=== PATIENT | female | born 1955 | race Caucasian/White ===

== ENCOUNTER 2016-09-24 14:26 | Emergency (ER) | payer MEDICARE, SELFPAY ==
[2016-09-24 15:01] VITALS: BP 160/79; PULSE 72; TEMP 98.4
[2016-09-24 15:02] VITALS: BMI 37.9
--- NOTE | 2016-09-24 15:25 | DIRPT ---
CLINICAL DATA: Fall 2 days ago with persistent wrist pain, initial encounter EXAM: LEFT WRIST - COMPLETE 3+ VIEW COMPARISON: None. FINDINGS: There are postsurgical changes consistent with prior removal of the trapezium. No acute fracture or dislocation is noted. No gross soft tissue abnormality is seen. IMPRESSION: Postsurgical changes without acute abnormality. Electronically Signed By: Darshan Acosta M.D. On: 09/24/2016 15:22
--- NOTE | 2016-09-24 15:50 | EDPRACDOC ---
- General Information Chief Complaint: Wrist Pain Stated Complaint: SLIPPED & FELL INJURED LT HAND/WRIST Time Seen by Provider: 09/24/16 15:30 Information Source: Patient Mode of Arrival: Car Home Medications: Home Medications Bupropion HCl [Wellbutrin Xl] 300 mg PO QAM 09/09/14 Trazodone HCl 300 mg PO QHS 09/09/14 Venlafaxine HCl [Effexor Xr] 150 mg PO BID 09/09/14 Multivit-Min/FA/Lycopene/Lut [Centrum Silver Tablet] 1 each PO DAILY 11/27/14 Dicyclomine HCl [Bentyl] 10 mg PO Q6H PRN 09/13/15 Mirabegron [Myrbetriq] 25 mg PO HS 09/13/15 Aripiprazole [Abilify] 2 mg PO DAILY 05/19/16 Albuterol Sulfate [Proventil, Ventolin] 2.5 mg NEB Q6H PRN 06/18/16 Lubiprostone [Amitiza] 24 mcg PO DAILY 08/31/16 Allergies/Adverse Reactions: Allergies Allergy/AdvReac Type Severity Reaction Status Date / Time butorphanol tartrate Allergy Unknown See Verified 09/24/16 15:21 [From Stadol] Comments cefazolin sodium [From Ancef] Allergy Unknown Unknown Verified 09/24/16 15:21 clindamycin HCl Allergy Unknown See Verified 09/24/16 15:21 [From Cleocin] Comments clindamycin palmitate HCl Allergy Unknown See Verified 09/24/16 15:21 [From Cleocin] Comments clindamycin phosphate Allergy Unknown See Verified 09/24/16 15:21 [From Cleocin] Comments codeine Allergy Unknown rash Verified 09/24/16 15:21 morphine Allergy Unknown Nausea only Verified 09/24/16 15:21 nefazodone HCl [From Serzone] Allergy Unknown See Verified 09/24/16 15:21 Comments Penicillins Allergy Unknown rash Verified 09/24/16 15:21 propoxyphene napsylate Allergy Unknown rash Verified 09/24/16 15:21 [From Darvocet-N 100] silodosin [From Rapaflo] Allergy Unknown Itching Verified 09/24/16 15:21 Sulfa (Sulfonamide Allergy Unknown joint pain Verified 09/24/16 15:21 Antibiotics) sumatriptan [From Imitrex] Allergy Unknown Difficulty Verified 09/24/16 15:21 Breathing tramadol HCl [From Ultram] Allergy Unknown rash Verified 09/24/16 15:21 zolpidem tartrate Allergy Unknown See Verified 09/24/16 15:21 [From Ambien] Comments ciprofloxacin [From Cipro] Allergy Hives* Verified 09/24/16 15:21 ciprofloxacin HCl Allergy Hives* Verified 09/24/16 15:21 [From Cipro] estazolam [From Prosom] Allergy Unknown Verified 09/24/16 15:21 felodipine [From Plendil] Allergy Unknown Verified 09/24/16 15:21 hydromorphone HCl Allergy Agitation Verified 09/24/16 15:21 [From Dilaudid] sulfamethoxazole Allergy Edema-Gener Verified 09/24/16 15:21 [From Septra] alized temazepam [From Restoril] Allergy Unknown Verified 09/24/16 15:21 trimethoprim [From Septra] Allergy Edema-Gener Verified 09/24/16 15:21 alized - History of Present Illness Onset: 3 days HPI: PT PRESENTS TODAY WITH LEFT WRIST PAIN AFTER FOOSH 3 DAYS AGO ON ICE. PT CONCERNED BECAUSE SHE HAD SURGERY ON WRIST [address] VILLATORO[address] NO APPARENT DISTRESS. Location: Reports: Radial Mechanism: Reports: FOOSH Circumstances: Reports: Fall Pain Severity: Reports: Mild Associated Signs and Symptoms: Reports: None ED Past Medical History - History Reviewed Yes Nurses notes reviewed and agree except as marked - Patient Medical History Neurological History: Reports: Dementia Cardiac History: Reports: Hypertension (CONTROLLED), Cardiac Catheterization ( 2013 NEGATIVE.. CHEST PAIN AND PRESSURE RELATED TO GALLBLADDER), Hypercholesterolemia Respiratory History: Reports: Asthma, COPD, Pneumonia, Pulmonary Embolism ( right lower lobe 2011) GI/ History: Reports: Kidney (Renal Surgery), Urinary Tract Infection (hx), Kidney Stones (hx), Gastroesophageal Reflux Musculoskeletal History: Reports: Arthritis, Osteoarthritis Psychological History: Reports: Anxiety. Denies: Depression Systemic History: Reports: Anemia. Denies: Cancer Additional Past Medical History: FIBROMYALGIA Surgical History: Reports: Cholecystectomy, Hysterectomy, Cardiac Catheterization (2013 NEGATIVE.. CHEST PAIN AND PRESSURE RELATED TO GALLBLADDER ), Tonsillectomy/Adnoidectomy - Family Medical History Reports: Hypertension (MOM), Cancer (MOM, LUNG). Denies: Diabetes, Stroke - Social Medical History Smoking Status: Never smoker EDM Review of Systems - Review of Systems ROS Negative Except as Marked: Yes All systems reviewed and were negative except as marked Constitutional: No Symptoms Reported Respiratory: No Symptoms Reported Cardiovascular: No Symptoms Reported Gastrointestinal: No Symptoms Reported Neurological: No Symptoms Reported Musculoskeletal: Wrist Integumentary: No Symptoms Reported - Physical Exam Constitutional: Alert (Awake), No apparent distress Oriented to: Time, Person, Place Last recorded Vital Signs: Last Vital Signs Temp 98.4 F 09/24/16 15:01 Pulse 72 09/24/16 15:01 Resp 18 09/24/16 15:01 BP 160/79 09/24/16 15:01 Pulse Ox 95 09/24/16 15:01 Oxygen Pulse Oxygen Saturation 95 O2 Device Oxygen Flow Rate Fraction of Inspired Oxygen ( FIO2) - HEENT Head: Normal Eye Exam: Normal Neck: Normal, Denies Pain, Midline - Respiratory/Cardiovascular Respiratory: Normal - CTA Cardiovascular: Normal - GI Palpation: Normal Tenderness: Non tender - Musculoskeletal Back: Normal Extremities: Other (PT STATES PAIN ONLY WHEN GRIPPING; FULL ROM; NO TTP; NO SWELLING; RADIAL PULSES INTACT; PT DENIES SNUFFBOX TENDERNESS) - Integumentary Skin: Normal Lymphatics: Normal - Neurologic Mood Description: Normal Thought: Coherent Perception: Normal ED Wrist Problem Exam Wrist Symptoms: Normal Hand Symptoms: Normal Forearm Symptoms: Normal Distal Function/Circulation: Normal - Integumentary Skin: Normal Lymphatics: Normal Decision Time to Discharge: 15:49 - Departure Disposition: Home Condition: Good Final Diagnosis: Sprain of wrist Instructions: Wrist Injury (ED) Education/Counseling Given To: Patient Education/Counseling Given Regarding: Diagnosis, Treatment, Follow Up Referrals: Flex Woods MD [Primary Care Provider] - One Week Mesfin Villatoro MD [Staff Physician] - One Week Additional Instructions: PLEASE WEAR YOUR SPLINT AND GIVE DR. VILLATORO A CALL FOR FOLLOW UP APPOINTMENT.
== END 2016-09-24 15:56 | disposition home or self-care (01) ==
LOC: EDMC 14:26
DX: S63.502A Unspecified sprain of left wrist, initial encounter (principal); W19.XXXA Unspecified fall, initial encounter
CPT/HCPCS: 99282